=== PATIENT | female | born 1980 | race Caucasian/White ===

== ENCOUNTER 2017-03-04 09:29 | Inpatient (IN) | payer OTHER ==
[~2017-03-04] VITALS: Ht 167.6 cm; Wt 85.0 kg
[2017-03-04 10:15] VITALS: Ht 167.6 cm; Wt 85.0 kg
[2017-03-04] MEDS ORDERED: PRENAT PO (10:15)
[2017-03-04 10:16] VITALS: BP 105/75; PULSE 89; RESP 18
[2017-03-04] MEDS ORDERED: CEFAZOLIN 2 GM/50 ML (PMX) 50 ML IVPB SCH (10:30)
[2017-03-04] MEDS ORDERED: OXYTOCIN 30 UNITS/LR 500 ML IV PRN ×2 (10:30→21:30)
[2017-03-04] MEDS ORDERED: CARBOPROST 250 MCG INJ IM PRN ×2 (10:30→21:30)
[2017-03-04] MEDS ORDERED: METHYLERGONOVINE 0.2 MG INJ IM PRN (10:30)
[2017-03-04] MEDS ORDERED: MISOPROSTOL 200 MCG TAB PR PRN ×2 (10:30→21:30)
[2017-03-04 10:52] LABS: ADD SCAN DIFF NO
[2017-03-04 10:55] LABS: BASOPHIL # 0.1 10^3/ul (0.0-0.1); BASOPHILS % 0.4 % (0.0-2.0); EOSINOPHILS # 0.2 10^3/ul (0.0-0.5); EOSINOPHILS % 1.3 % (0.0-7.0); HEMATOCRIT 36.9 % (37.0-47.0); HEMOGLOBIN 12.1 g/dl (12.0-16.0); LYMPHOCYTES # 1.8 10^3/ul (0.8-2.9); MEAN CORPUSCULAR HEMOGLOBIN 30.9 pg (29.0-33.0); MEAN CORPUSCULAR HGB CONC 32.8 g/dl (32.0-37.0); MEAN CORPUSCULAR VOLUME 94.4 fl (82.0-101.0); MEAN PLATELET VOLUME 9.8 fl (7.4-10.4); MONOCYTE # 0.9 10^3/ul (0.3-0.9); MONOCYTES % 7.5 % (0.0-11.0); NEUTROPHIL # 8.7 10^3/ul (1.6-7.5); NEUTROPHILS % 74.5 % (39.0-77.0); PLATELET COUNT 217 10^3/UL (140-415); RED BLOOD COUNT 3.91 10^6/ul (4.20-5.40); RED CELL DISTRIBUTION WIDTH 12.2 % (11.5-14.5); WHITE BLOOD COUNT 11.7 10^3/ul (4.8-10.8)
[2017-03-04 11:19] LABS: INR 0.96; PROTIME 12.8 Sec (12.2-14.2)
[2017-03-04 11:24] LABS: PARTIAL THROMBOPLASTIN TIME 28.2 Sec (25.0-35.0)
[2017-03-04] MEDS ORDERED: ONDANSETRON 4 MG INJ IV STA (12:41)
[2017-03-04] MEDS: LACTATED RINGER'S 1,000 ML IV SCH ×2 (12:48→13:30)
[2017-03-04] MEDS ORDERED: CITRIC ACID/NA CITRATE 30 ML CUP PO ONE (13:00)
[2017-03-04] MEDS ORDERED: PHENYLephrine (100 MCG/ML) 5ML SYG ONE ×5 (13:54→14:48)
[2017-03-04] MEDS ORDERED: morphine SULFATE/PF (10 MG/10 ML) INJ ONE (13:54)
[2017-03-04] MEDS ORDERED: ONDANSETRON 4 MG INJ ONE (14:09)
[2017-03-04] MEDS ORDERED: EPHEDrine SULFATE 50 MG/5 ML SYG ONE (15:00)
[2017-03-04] MEDS: OXYTOCIN 30 UNITS/LR 500 ML IV SCH ×2 (15:38→19:27)
[2017-03-04] MEDS ORDERED: HYDROmorphONE (0.2 MG/ML) 10ML SYG IV PRN ×2 (16:00)
[2017-03-04] MEDS ORDERED: METOCLOPRAMIDE 10 MG INJ IV PRN (16:00)
[2017-03-04] MEDS ORDERED: FENTAnyl 50 MCG/ML VIAL IV PRN (16:00)
[2017-03-04] MEDS ORDERED: HYDROmorphONE 1 MG/ML SYG IV PRN ×2 (16:00)
[2017-03-04] MEDS ORDERED: DIPHENHYDRAMINE 50 MG INJ IV PRN ×2 (16:00)
[2017-03-04] MEDS ORDERED: NALOXONE (0.4 MG/ML) INJ IV PRN (16:00)
[2017-03-04] MEDS ORDERED: ONDANSETRON 4 MG INJ IV PRN ×2 (16:00)
[2017-03-04] MEDS ORDERED: MEPERIDINE 25 MG INJ IV PRN (16:00)
[2017-03-04] MEDS: KETOROLAC 30 MG INJ IV PRN (16:16)
--- NOTE | 2017-03-04 17:58 | HP ---
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 OB Admission Exam Vital Signs Vital Signs Vital Signs Date Time Temp Pulse Resp B/P Pulse Ox O2 Delivery O2 Flow Rate FiO2 03/04/17 10:16 98.0 89 18 105/75 Room Air Physical Exam HEENT: WNL Heart: Rhythm Normal Lungs: Clear, Equal Abdomen: WNL Extremities: Normal Reflexes: Normal Cervical Dilatation: None Effacement: 0% Station: Ballotable Membranes: Intact Heart Rate: 120's Accelerations: Accelerations Present Decelerations: No Decelerations Varibility: Absent Contractions on Admission: None Last 72 hours Lab Results CBC & BMP 03/04/17 10:25 OB Assessment/Plan Reason for admission: section Plan: Other (Repeat ) MOMO ALATORRE MD Mar 04, 2017 17:55
--- NOTE | 2017-03-04 19:11 | OPR ---
DATE OF OPERATION: 03/04/2017 PREOPERATIVE DIAGNOSES: 1. Intrauterine at 39 weeks' gestation. 2. History of 2 previous sections. POSTOPERATIVE DIAGNOSES: 1. Intrauterine at 39 weeks' gestation. 2. History of 2 previous sections. OPERATION PERFORMED: Repeat transverse low cervical section. SURGEON: Momo Alatorre MD GENERAL SERVICE OFFICER: Dayna Cowan MD ANESTHESIA: Spinal. ANESTHESIOLOGIST: Rob Yarbrough MD FINDINGS: Live baby boy, Apgars 9 and 9. Baby weighed 3415 grams, 7 pounds 8 ounces. DETAILS OF THE PROCEDURE: Under satisfactory spinal anesthesia, the patient prepped and draped and placed in supine position tilted to the left. Pfannenstiel incision was made, carried through the s ubcutaneous tissue. Bleeders brought under control with electrocautery. Fascia incised to the filomena th of incision. Rectus muscle divided in midline. Peritoneum exposed, entered through a transverse incision. Exploration of abdomen. Gravid uterus at term, normal-appearing tubes and ovaries. Carlos dder flap was developed. Transverse incision was made in the lower segment of the uterus. Amniotic sac ruptured, clear amniotic fluid noted. Live baby boy was delivered from unengaged vertex. Nasa l oropharyngeal suction was performed. Cord was clamped after stopped pulsation. Baby handed to e team for immediate attention. The patient received 20 units of Pitocin. Placenta delive red manually intact. Uterine cavity cleaned with wet sponge and drainage established. Uterus close d in 2 layers using Monocryl #1 in continuous fashion. Peritoneal cavity irrigated with warm saline . Sponge, needle and instrument reported to be correct. Abdominal peritoneum closed with 2-0 chrom ic catgut continuously. Rectus muscle approximated with few interrupted 2-0 chromic catgut. Fascia closed with #1 PDS in a continuous fashion. Subcutaneous tissue approximated with 2-0 chromic catg ut. Skin closed with monty. Estimated blood loss 600 mL. Urine bag contained 200 mL of clear ur ine. The patient tolerated procedure well, transferred to recovery room in good condition. Dictated By: MOMO ALATORRE MD HF/NTS Conf#: [id number] DID#: [id number]
[2017-03-04 20:30] VITALS: BP 115/78; PULSE 76; RESP 18
[2017-03-04 21:00] VITALS: BP 125/78; PULSE 82; RESP 18
[2017-03-04] MEDS ORDERED: LANOLIN 7 GM TUBE TOP PRN (21:30)
[2017-03-04] MEDS ORDERED: ACETAMINOPHEN/CODEINE #3 TAB PO PRN (21:30)
[2017-03-05] VITALS: BP 127/78; PULSE 76; RESP 18
[2017-03-05] MEDS: LACTATED RINGER'S 1,000 ML IV SCH ×3 (00:03→13:15)
[2017-03-05] MEDS: KETOROLAC 30 MG INJ IV PRN ×2 (03:39→10:03)
[2017-03-05 04:30] VITALS: BP 114/61; PULSE 75; RESP 18
--- NOTE | 2017-03-05 07:14 | CONS ---
Date/Time of Note Date/Time of Note DATE: 03/05/17 TIME: 07:13 Consultation Date/Type/Reason Admit Date/Time Mar 04, 2017 at 09:29 Initial Consult Date 03/05/17 Type of Consultation: Anesthesiology Reason for Consultation Follow up 24 HR Interval Summary Free Text/Dictation Pt seen and examined at bedside is POD #1 for C/S. Pt had Duramorph neuraxial injection for post op pain management. She states she is currently doing well with no pain/N/V/D/PATEL/Numbness. Will continue to follow up PRN. Thank you. Constitutional: no complaints Exam/Review of Systems Vital Signs Vitals Vital Signs Date Time Temp Pulse Resp B/P Pulse Ox O2 Delivery O2 Flow Rate FiO2 03/05/17 04:30 98.0 75 18 114/61 Room Air Intake and Output 03/04/17 03/04/17 03/05/17 15:00 23:00 07:00 Intake Total 1300 ml 375 ml 1375 ml Output Total 275 ml 850 ml 600 ml Balance 1025 ml -475 ml 775 ml Results Result Diagram: 03/04/17 1025 Results 24 hrs Laboratory Tests Test 03/04/17 10:25 White Blood Count 11.7 H Red Blood Count 3.91 L Hemoglobin 12.1 Hematocrit 36.9 L Mean Corpuscular Volume 94.4 Mean Corpuscular Hemoglobin 30.9 Mean Corpuscular Hemoglobin Concent 32.8 Red Cell Distribution Width 12.2 Platelet Count 217 Mean Platelet Volume 9.8 Neutrophils % 74.5 Lymphocytes % 15.0 Monocytes % 7.5 Eosinophils % 1.3 Basophils % 0.4 Nucleated Red Blood Cells % 0.0 Neutrophils # 8.7 H Lymphocytes # 1.8 Monocytes # 0.9 Eosinophils # 0.2 Basophils # 0.1 Nucleated Red Blood Cells # 0.0 Prothrombin Time 12.8 Prothrombin Time Ratio 1.0 INR International Normalized Ratio 0.96 Activated Partial Thromboplast Time 28.2 Rapid Plasma Reagin NONREACTIVE Hepatitis B Surface Antigen NEGATIVE Medications Medications Current Medications Naloxone HCl (Narcan) 0.1 mg Q2M PRN IV FOR RESP RATE 8 OR LESS; Start 03/04/17 at 16:00; Stop 03/05/17 at 15:59 Ketorolac Tromethamine (Toradol) 30 mg Q6H PRN IV PAIN Last administered on 03/05 03:39; Admin Dose 30 MG; Start 03/04/17 at 16:00; Stop 03/05/17 at 15:59 Hydromorphone HCl (Dilaudid) 0.2 mg Q3H PRN IV PAIN LEVEL 1-5; Start 03/04/17 at 16:00; Stop 03/05/17 at 15:59 Hydromorphone HCl (Dilaudid) 0.4 mg Q3H PRN IV PAIN LEVEL 6-10; Start 03/04/17 at 16:00; Stop 03/05/17 at 15:59 Diphenhydramine HCl (Benadryl) 25 mg Q6H PRN IV ITCHING Last administered on 22:42; Admin Dose 25 MG; Start 03/04/17 at 16:00; Stop 03/05/17 at 15:59 Ondansetron HCl 4 mg 4 mg Q6H PRN IV NAUSEA AND/OR VOMITING; Start 03/04/17 at 16:00; Stop 03/05/17 at 15:59 Lactated Ringer's (Lr) 1,000 ml @ 125 mls/hr Q8H IV Last administered on 06:50; Admin Dose 125 MLS/HR; Start 03/04/17 at 21:15 Ibuprofen (Motrin) 600 mg Q6 PO ; Start 03/05/17 at 18:00 Simethicone (Mylicon) 160 mg Q8H PRN PO DISTENSION/GAS/BLOATING; Start 03/04/17 at 21:30 Diphtheria/ Tetanus/Acell Pertussis 0.5 ml 0.5 ml ONCE ONCE IM* ; Start 03/07/17 at 09:00; Stop 03/07/17 at 09:01 Oxytocin/Lactated Ringer's 500 ml @ 0 mls/hr ONCE PRN IV For Hemorrhage Management; Start 03/04/17 at 21:30 Carboprost Tromethamine (Hemabate) 250 mcg ONCE PRN IM VAGINAL BLEEDING; Start 03/04/17 at 21:30 Misoprostol (Cytotec) 1,000 mcg ONCE PRN VT VAGINAL BLEEDING; Start 03/04/17 at 21:30 Prenat Multivit/ [place]/Iron/Folic Ac ( S) 1 tab DAILY PO ; Start at 09:00 Acetaminophen/ Codeine Phosphate (Tylenol No.3) 1 tab Q4H PRN PO PAIN LEVEL 4-6 ; Start 03/05/17 at 16:00 RODNEY HOPKINS Mar 05, 2017 07:14
[2017-03-05 07:30] VITALS: BP 98/57; PULSE 78; RESP 16
[2017-03-05] MEDS: MULTIVIT/MIN/FOLATE/IRON/PREN TAB PO SCH (09:00)
[2017-03-05 10:12] LABS: ADD SCAN DIFF NO
[2017-03-05 10:15] LABS: BASOPHILS % 0.3 % (0.0-2.0); EOSINOPHILS # 0.2 10^3/ul (0.0-0.5); EOSINOPHILS % 1.8 % (0.0-7.0); HEMATOCRIT 29.9 % (37.0-47.0); LYMPHOCYTES # 1.2 10^3/ul (0.8-2.9); LYMPHOCYTES % 13.6 % (15.0-51.0); MEAN CORPUSCULAR HEMOGLOBIN 31.8 pg (29.0-33.0); MEAN CORPUSCULAR HGB CONC 33.4 g/dl (32.0-37.0); MEAN CORPUSCULAR VOLUME 95.2 fl (82.0-101.0); MONOCYTE # 0.6 10^3/ul (0.3-0.9); NEUTROPHIL # 6.8 10^3/ul (1.6-7.5); NEUTROPHILS % 76.6 % (39.0-77.0); PLATELET COUNT 170 10^3/UL (140-415); RED BLOOD COUNT 3.14 10^6/ul (4.20-5.40); RED CELL DISTRIBUTION WIDTH 12.1 % (11.5-14.5); WHITE BLOOD COUNT 8.9 10^3/ul (4.8-10.8)
[2017-03-05 12:30] VITALS: BP 115/62; PULSE 77; RESP 18
--- NOTE | 2017-03-05 12:50 | PN ---
Date/Time of Note Date/Time of Note DATE: 03/05/17 TIME: 12:46 OB Subjective Subjective Subjective Post day 1 vital signs are stable afebrile hemoglobin 10 hematocrit 29.9 W BC 8 .9 abdomen soft mild to moderate distention bowel sounds patient able to pass flatus incision dry uterus firm lochia moderate extremity normal ambulation and coordination MOMO ALATORRE MD Mar 05, 2017 12:50
[2017-03-05 16:00] VITALS: BP 116/69; PULSE 81; RESP 16
[2017-03-05] MEDS: ACETAMINOPHEN/CODEINE #3 TAB PO PRN (16:47)
[2017-03-05] MEDS: IBUPROFEN 600 MG TAB PO SCH ×2 (18:28→23:38)
[2017-03-05 20:17] VITALS: BP 98/62; PULSE 77; RESP 18
[2017-03-05] MEDS: OXYCODONE/ACETAMINOPHEN (5/325) TAB PO PRN (20:17)
[2017-03-06] MEDS: OXYCODONE/ACETAMINOPHEN (5/325) TAB PO PRN ×4 (01:35→20:38)
[2017-03-06 04:04] VITALS: BP 106/57; PULSE 71; RESP 18
[2017-03-06] MEDS: IBUPROFEN 600 MG TAB PO SCH ×4 (05:37→23:59)
[2017-03-06 07:53] VITALS: BP 106/69; PULSE 69; RESP 18
[2017-03-06] MEDS: MULTIVIT/MIN/FOLATE/IRON/PREN TAB PO SCH (09:52)
--- NOTE | 2017-03-06 10:03 | PN ---
Date/Time of Note Date/Time of Note DATE: 03/06/17 TIME: 10:02 OB Subjective Subjective Subjective Post day 2 Afebrile vital signs stable abdomen soft incision dry uterus for lochia moderate extremity normal bowel sounds present no bowel movement fleets enema recommended MOMO ALATORRE MD Mar 06, 2017 10:03
[2017-03-06] MEDS ORDERED: NA PHOSPHATE/BIPHOS 133 ML ENEMA PR ONE (10:30)
[2017-03-06 16:00] VITALS: BP 111/68; PULSE 78; RESP 18
[2017-03-06 20:38] VITALS: BP 93/66; PULSE 78; RESP 20
[2017-03-07] MEDS: OXYCODONE/ACETAMINOPHEN (5/325) TAB PO PRN (03:35)
[2017-03-07 04:30] VITALS: BP 102/59; PULSE 73; RESP 20
[2017-03-07] MEDS: IBUPROFEN 600 MG TAB PO SCH ×3 (06:00→12:41)
[2017-03-07 08:00] VITALS: BP 110/75; RESP 18
[2017-03-07] MEDS: MULTIVIT/MIN/FOLATE/IRON/PREN TAB PO SCH (08:30)
[2017-03-07] MEDS: ACETAMINOPHEN/CODEINE #3 TAB PO PRN (08:30)
[2017-03-07] MEDS ORDERED: DIPHTH/TET/ACEL PERTUSS (ADULT) 0.5 ML VIAL IM* ONE (09:00)
--- NOTE | 2017-03-07 12:14 | DS ---
Date/Time of Note Date/Time of Note DATE: 03/07/17 TIME: 12:09 Discharge Summary Admission/Discharge Info Admit Date/Time Mar 04, 2017 at 09:29 Discharge Date/Time March 07 Final Diagnosis 39 weeks , 2 previous section Patient Condition: Good Procedures Repeat Hx of Present Illness 39 weeks history of 2 previous Hospital Course Postoperative course in the hospital uneventful did not spiked temp or having problem with bowel movement or urination on third postoperative day incision inspected found free of inflammation and infection. Home Meds Reported Medications Multivit/Min/Fol Ac/Iron/Pren* ( S*) 1 Tab Tab, 1 TAB PO DAILY, TAB 03/04/17 MOMO ALATORRE MD Mar 07, 2017 12:14
== END 2017-03-07 16:42 | disposition home or self-care (01) | DRG 766 ==
LOC: L-D 09:29 → PP1 20:27
PROVIDERS: ADMIT Obstetrics & Gynecology; ATTEND Obstetrics & Gynecology
PROC: 10D00Z1 Extraction of Products of Conception, Low, Open Approach (ICD-10-PCS; principal; 2017-03-04 12:30)
DX: O34.211 Maternal care for low transverse scar from previous cesarean delivery (principal); Z37.0 Single live birth; Z3A.39 39 weeks gestation of pregnancy
CPT/HCPCS: 85025; 85610; 85730; 86592; 86850; 86900; 86901; 87340; 90715; 99464; J0690; J1170; J1200; J1885; J2274; J2370; J2405; J2590; J7120

== ENCOUNTER 2018-09-17 09:35 | Inpatient (IN) | END 2018-09-20 13:45 | disposition home or self-care (01) | DRG 785 ==